=== PATIENT | male | born 1995 | race Caucasian/White ===

== ENCOUNTER 2018-12-16 08:46 | Emergency (ER) | payer OTHER ==
[2018-12-16] MEDS: KETOROLAC 60 MG INJ IM (09:28)
== END 2018-12-16 10:36 | disposition home or self-care (01) ==
LOC: FTE 08:46
DX: M25.571 Pain in right ankle and joints of right foot (principal); I10 Essential (primary) hypertension
CPT/HCPCS: 73610; 73610-RT; 73630; 96372; 99284-25